=== PATIENT | male | born 1970 | race American Indian/Alaskan Native ===

== ENCOUNTER 2016-09-06 09:02 | Emergency (ER) | payer OTHER ==
[2016-09-06 10:03] VITALS: BP 103/67
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
== END 2016-09-06 11:53 | disposition home or self-care (01) ==
LOC: ED 09:02
DX: M54.5 Low back pain (principal); V49.49XA Driver injured in collision with other motor vehicles in traffic accident, initial encounter; Y93.9 Activity, unspecified; Y92.9 Unspecified place or not applicable; Y99.9 Unspecified external cause status; E11.9 Type 2 diabetes mellitus without complications
CPT/HCPCS: 72100; 99283